=== PATIENT | female | born 1995 | race Caucasian/White ===

== ENCOUNTER 2017-09-07 15:23 | Emergency (ER) | payer OTHER ==
[~2017-09-07] VITALS: Ht 157.5 cm; Wt 71.0 kg
[2017-09-07 15:29] VITALS: Ht 157.5 cm; Wt 71.0 kg
[2017-09-07] MEDS ORDERED: BCPILLS PO (15:38)
[2017-09-07 15:55] VITALS: BP 145/83; PULSE 106; TEMP 36.5; O2SAT 99
--- NOTE | 2017-09-07 16:07 | EMERGENCY ROOM VISIT NOTE ---
ED Visit Note First contact with patient: 15:34 CHIEF COMPLAINT: Head injury HISTORY OF PRESENT ILLNESS: This 22-year-old female patient presented to the emergency department after receiving a head injury 5 days ago. The patient has a history of concussions in the past and this feels similar.. There was no brief loss of consciousness. There has been no vomiting. The patient complains of right-sided head and ear pain. She did go to [facility] yesterday with this complaint, but they did not evaluate her ear or perform a neurologic exam. The patient rates the pain as 4/10 and dull. The patient denies bowel or bladder dysfunction. The patient denies any other injuries. REVIEW OF SYSTEMS: A review of systems was performed with positives and pertinent negatives listed in the history of present illness. All other systems were reviewed and are negative. ALLERGIES: See EMR MEDICATIONS: control PMH: No chronic medical disease SOCIAL HISTORY: Student was locally PHYSICAL EXAM: VITALS: Vitals are noted on the nurse's note and reviewed by myself. Vital signs stable. GENERAL: Well-developed, well-nourished, white female, who is in no acute distress and resting comfortably. Patient is cooperative with the examination. HEAD: Normocephalic atraumatic. EARS: External ear normal. External auditory canals clear, tympanic membranes pearly quigley without erythema or effusion bilaterally. EYES: Pupils equal round and reactive to light and accommodation. Conjunctivae without injection, sclerae without icterus. Extraocular movements intact. NOSE: Patent, turbinates without inflammation or discharge. MOUTH: Mucous membranes moist. Tonsils are not enlarged. Pharynx without erythema, blood, or exudate. Uvula midline. Airway patent. NECK: Supple without nuchal rigidity. No lymphadenopathy. No thyromegaly. Cervical spine is nontender. HEART: Regular rate and rhythm without murmurs gallops or rubs. LUNGS: Clear to auscultation bilaterally without wheezes, rales or rhonchi. No retractions or accessory muscle use. MUSCULOSKELETAL: No muscle atrophy, erythema, or edema noted. Full range of motion in all extremities. No tenderness to palpation. Strength 5/5 throughout. NEURO: Patient was alert and oriented to person place and time. CN II through XII grossly intact. No focal neurological deficits. Normal Romberg. Normal rapid alternating movements. Finger to nose intact. ED COURSE: Physical exam history were performed. Nursing notes and EMR were reviewed. The patient appears to have struck her head several days ago and is describing some persistent concussion-like symptoms. The patient appears well on exam without obvious neurologic deficit. She does not have concerning bruising patterns for fracture. I discussed options of care with the patient including CT imaging. Utilizing shared decision making we elected to defer imaging at this time, which appears reasonable. The patient likely has a concussion that is exacerbated because she has had several concussions in the past. She is to continue to monitor her symptoms and follow with you adjusts with any ongoing or persisting symptoms. She will otherwise be treated conservatively and was pleased with this plan of care. Current/Historical Medications Scheduled Control Pills ( Control Pills), 1 TAB PO DAILY Allergies Coded Allergies: Cefdinir (Verified Allergy, Intermediate, n/v/d, 09/07/17) Sodium Benzoate (Verified Allergy, Intermediate, n/v/d, 09/07/17) Codeine (Verified Allergy, Unknown, Childhood allergy, 09/07/17) Vital Signs Date Time Temp Pulse Resp B/P (MAP) Pulse Ox O2 Delivery O2 Flow Rate FiO2 09/07/17 15:55 36.5 106 18 145/83 99 09/07/17 15:29 36.5 106 18 145/83 99 Room Air Departure Information Impression Primary Impression: Concussion Dispostion Home / Self-Care Condition FAIR Referrals No Doctor, Assigned (PCP) Forms HOME CARE DOCUMENTATION FORM, IMPORTANT VISIT INFORMATION Patient Instructions [facility] Additional Instructions You were seen and evaluated today on an emergency basis only. This is not a substitute for, or an effort to provide, complete comprehensive medical care. It is not possible to recognize and treat all injuries or illnesses in a single emergency department visit. For this reason it is recommended that you followup with [facility] with any ongoing or persisting symptoms. For baseline pain relief you may alternate ibuprofen and acetaminophen every 4 hours for pain control. Take 600 mg ibuprofen (Advil) and then 4 hours later take 1000 mg acetaminophen (Tylenol). Do not take more than 3000 mg acetaminophen in a single day. You are welcome to return to the emergency department anytime with new, worsening, or concerning symptoms.
== END 2017-09-07 15:56 | disposition home or self-care (01) ==
LOC: C.EDB 15:25 → C.EDD 15:56
DX: S06.0X0A Concussion without loss of consciousness, initial encounter (principal); W22.8XXA Striking against or struck by other objects, initial encounter; Z79.3 Long term (current) use of hormonal contraceptives; Z88.1 Allergy status to other antibiotic agents; Z88.8 Allergy status to other drugs, medicaments and biological substances; Z88.6 Allergy status to analgesic agent